=== PATIENT | male | born 1980 | race Two or more races ===

== ENCOUNTER 2020-12-07 17:39 | Emergency (ER) | payer OTHER ==
[~2020-12-07] VITALS: Ht 180.3 cm; Wt 98.4 kg
== END 2020-12-07 20:59 | disposition home or self-care (01) ==
LOC: ER 17:39
DX: N39.0 Urinary tract infection, site not specified (principal); R31.29 Other microscopic hematuria

== ENCOUNTER 2020-12-27 07:30 | Outpatient (CLI) | payer OTHER | END 2020-12-27 07:39 | disposition home or self-care (01) | LOC: TOM 07:30 | PROVIDERS: ATTEND Urology | DX: N28.1 Cyst of kidney, acquired (principal) ==

== ENCOUNTER 2021-11-12 11:19 | Emergency (ER) | payer OTHER ==
[~2021-11-12] VITALS: Ht 180.3 cm; Wt 97.5 kg
== END 2021-11-12 14:17 | disposition home or self-care (01) ==
LOC: ER 11:19
DX: K57.32 Diverticulitis of large intestine without perforation or abscess without bleeding (principal); Z88.6 Allergy status to analgesic agent